=== PATIENT | male | born 1975 | race Caucasian/White ===

== ENCOUNTER 2023-11-27 09:15 | Outpatient (CLI) | payer OTHER, SELFPAY | END 2023-11-27 09:16 | disposition home or self-care (01) | PROVIDERS: Visit Provider Family Medicine | DX: Z00.00 Encounter for general adult medical examination without abnormal findings (principal); R53.83 Other fatigue; E78.00 Pure hypercholesterolemia, unspecified; E66.09 Other obesity due to excess calories; Z13.9 Encounter for screening, unspecified | CPT/HCPCS: 80048; 80061; 84443; 85025 ==

== ENCOUNTER 2024-01-12 18:52 | Outpatient (CLI) | payer OTHER, SELFPAY ==
--- NOTE | 2024-01-19 12:00 | W.PM.SLEEP ---
Sleep Study Details Details Interpreting Provider: Esdras Date of Sleep Study: 01/12/24 Sleep Study Details: STUDY TYPE:? Home unattended ? BMI:? 40.4 ORDERING PROVIDER:? Esdras INDICATION:? Concern about sleep apnea ? SLEEP SUMMARY:? 511 minutes monitored RESPIRATORY SUMMARY:? AHI 80.6 Low oxygen 71 42.2% of study oxygen less than 90% Snoring 51.7% PERIODIC LIMB MOVEMENTS OF SLEEP:? Not recorded CARDIAC:? Range 49-100, mean 74.2 IMPRESSION:? Severe obstructive sleep apnea with severe desaturations RECOMMENDATION: Would favor an in-lab titration. If that is not possible recommend AutoSet CPAP with close follow-up. Once effective therapy is established the patient should have an overnight oximetry to ensure there is no need for nocturnal oxygen.
== END 2024-01-12 18:53 | disposition home or self-care (01) ==
PROVIDERS: PCP Family Medicine; Visit Provider Otolaryngology
DX: G47.33 Obstructive sleep apnea (adult) (pediatric) (principal)
CPT/HCPCS: 95806